=== PATIENT | female | born 1970 | race Caucasian/White ===

== ENCOUNTER 2017-10-16 16:38 | Observation (INO) | payer BC ==
[2017-10-16] MEDS ORDERED: 0.9 % SODIUM CHLORIDE 1,000 ML BAG IV ONE (17:02)
[2017-10-16] MEDS ORDERED: ONDANSETRON HCL IV 4 MG/2 ML VIAL IVP ONE (17:05)
[2017-10-16] MEDS ORDERED: ACETAMINOPHEN 1,000 MG/100 ML BTL IVPB ONE (17:06)
--- NOTE | 2017-10-16 17:08 | Emergency Department Record ---
History of Present Illness - General Source: Patient Mode of Arrival: Ambulatory Limitations: No limitations - History of Present Illness Initial Comments: 47 yo female presents with RUQ that started about 3 am. The pain is located over the RUQ. The pain seemed to come and go. The pain returned after she tried to eat ravioli with arelis sauce for lunch. No fever. She does have nausea. No vomiting. No diarrhea. No fever. No rash. She still does have a gall bladder. No other currently changes in her health. MD Complaint: Abdominal pain Onset/Timin -: Hour(s) Location: RUQ Radiation: Back Migration to: RUQ Severity: Mild Quality: Aching Consistency: Constant Improves With: Nothing Worsens With: Eating Associated Symptoms: Anorexia, Nausea, Vomiting - Related Data Patient : No <KHADRA CURRY - Last Filed: 10/16/17 18:21> - General Source: Patient Mode of Arrival: Ambulatory - History of Present Illness MD Complaint: Abdominal pain -: Hour(s) Location: RUQ <DANIEL GO - Last Filed: 10/17/17 05:15> - General Chief Complaint: Abdominal Pain Stated Complaint: ABD PAIN,NAUSEA Time Seen by Provider: 10/16/17 16:57 - Related Data Home Medications Medication Instructions Recorded Confirmed Last Taken Omeprazole [Prilosec] 20 mg PO DAILY 10/16/17 10/16/17 10/16/17 Allergies Allergy/AdvReac Type Severity Reaction Status Date / Time ibuprofen [From Motrin] Allergy Severe HIVES Verified 10/16/17 17:01 Travel Screening - Travel/Exposure Within Last 30 Days Have you traveled within the last 30 days?: No <KHADRA CURRY - Last Filed: 10/16/17 18:21> Review of Systems Constitutional: Denies: Chills, Fever, Malaise, Weakness Eyes: Denies: Eye discharge, Eye pain, Photophobia ENT: Denies: Congestion, Throat pain Respiratory: Denies: Cough, Dyspnea, Hemoptysis, Stridor, Wheezes Cardiovascular: Denies: Chest pain, Palpitations, Syncope Endocrine: Denies: Fatigue Gastrointestinal: Reports: Abdominal pain, Nausea. Denies: Diarrhea, Vomiting ( almost vomied but did not) Genitourinary: Denies: Dysuria, Urgency Musculoskeletal: Denies: Arthralgia, Back pain, Joint swelling, Myalgia Skin: Denies: Bruising, Change in color, Rash Neurological: Denies: Headache Psychiatric: Denies: Anxiety Hematological/Lymphatic: Denies: Blood Clots, Easy bleeding, Easy bruising, Swollen glands <KHADRA CURRY - Last Filed: 10/16/17 18:21> Reviewed: No additional complaints except as noted below Constitutional: Reports: As per HPI. Denies: Chills, Fever, Malaise, Night sweats, Weakness, Weight change Eyes: Reports: As per HPI. Denies: Eye discharge, Eye pain, Photophobia, Vision change ENT: Reports: As per HPI. Denies: Congestion, Dental pain, Ear pain, Epistaxis , Hearing loss, Throat pain Respiratory: Reports: As per HPI. Denies: Cough, Dyspnea, Hemoptysis, Stridor, Wheezes Cardiovascular: Reports: As per HPI. Denies: Arrhythmia, Chest pain, Dyspnea on exertion, Edema, Murmurs, Orthopnea, Palpitations, Paroxysmal nocturnal dyspnea, Rheumatic Fever, Syncope Endocrine: Reports: As per HPI. Denies: Fatigue, Heat or cold intolerance, Polydipsia, Polyuria Gastrointestinal: Reports: As per HPI. Denies: Abdominal pain, Constipation, Diarrhea, Hematemesis, Hematochezia, Melena, Nausea, Vomiting Genitourinary: Reports: As per HPI. Denies: Abnormal menses, Discharge, Dyspareunia, Dysuria, Frequency, Hematuria, Incontinence, Retention, Urgency Musculoskeletal: Reports: As per HPI. Denies: Arthralgia, Back pain, Gout, Joint swelling, Myalgia, Neck pain Skin: Reports: As per HPI. Denies: Bruising, Change in color, Change in hair/ nails, Lesions, Pruritus, Rash Neurological: Reports: As per HPI. Denies: Abnormal gait, Confusion, Headache, Numbness, Paresthesias, Seizure, Tingling, Tremors, Vertigo, Weakness Psychiatric: Reports: As per HPI. Denies: Anxiety, Auditory hallucinations, Depression, Homicidal thoughts, Suicidal thoughts, Visual hallucinations Hematological/Lymphatic: Reports: As per HPI. Denies: Anemia, Blood Clots, Easy bleeding, Easy bruising, Swollen glands <DANIEL GO - Last Filed: 10/17/17 05:15> Past Medical History - SOCIAL HISTORY Smoking Status: Never smoker Alcohol Use: None Drug Use: None - RESPIRATORY Hx Respiratory Disorders: No - CARDIOVASCULAR Hx Cardio Disorders: No - NEURO Hx Neuro Disorders: No - GI Hx GI Disorders: Yes Hx Abdominal Pain: Yes Hx Reflux: Yes Hx Nausea/Vomiting: Yes - Hx Genitourinary Disorders: No - ENDOCRINE Hx Endocrine Disorders: No - MUSCULOSKELETAL Hx Musculoskeletal Disorders: No - PSYCH Hx Psych Problems: No - HEMATOLOGY/ONCOLOGY Hx Hematology/Oncology Disorders: No <KHADRA CURRY - Last Filed: 10/16/17 18:21> - SOCIAL HISTORY Smoking Status: Never smoker <DANIEL GO - Last Filed: 10/17/17 05:15> Family Medical History Any Significant Family History?: No <KHADRA CURRY - Last Filed: 10/16/17 18:21> Physical Exam - General General Appearance: Alert, Oriented x3, Cooperative, No acute distress Limitations: No limitations - Head Head exam: Normal inspection - Eye Eye exam: Normal appearance, PERRL. negative: Conjunctival injection, Periorbital swelling, Scleral icterus - ENT ENT exam: Normal exam, Mucous membranes moist Ear exam: Normal external inspection Nasal Exam: Normal inspection Mouth exam: Normal external inspection - Neck Neck exam: Normal inspection, Full ROM. negative: Tenderness - Respiratory Respiratory exam: Normal lung sounds bilaterally. negative: Respiratory distress - Cardiovascular Cardiovascular Exam: Regular rate, Normal rhythm, Normal heart sounds - GI/Abdominal GI/Abdominal exam: Soft, Tenderness (Tender RUQ, otherwise soft, non tender abdomen). negative: Rebound, Rigid - Rectal Rectal exam: Deferred - exam: Deferred - Extremities Extremities exam: Normal inspection, Full ROM, Normal capillary refill. negative: Tenderness - Back Back exam: Reports: Normal inspection. Denies: CVA tenderness (R), CVA tenderness (L) - Neurological Neurological exam: Alert, Oriented X3 - Psychiatric Psychiatric exam: Normal affect, Normal mood - Skin Skin exam: Dry, Intact, Normal color, Warm <KHADRA CURRY - Last Filed: 10/16/17 18:21> - General General Appearance: Alert, Oriented x3, Cooperative, No acute distress - Head Head exam: Normal inspection - Eye Eye exam: Normal appearance, PERRL Pupils: Normal accommodation - ENT ENT exam: Normal exam, Mucous membranes moist, Normal external ear exam, Normal orophraynx, TM's normal bilaterally Ear exam: Normal external inspection. negative: External canal tenderness Nasal Exam: Normal inspection. negative: Discharge, Sinus tenderness Mouth exam: Normal external inspection, Tongue normal Teeth exam: Normal inspection. negative: Dental caries Throat exam: Normal inspection. negative: Tonsillar erythema, Tonsillar exudate - Neck Neck exam: Normal inspection, Full ROM. negative: Tenderness - Respiratory Respiratory exam: Normal lung sounds bilaterally. negative: Respiratory distress - Cardiovascular Cardiovascular Exam: Regular rate, Normal rhythm, Normal heart sounds - GI/Abdominal GI/Abdominal exam: Soft, Normal bowel sounds, Tenderness (tender over RUQ abdomen) - Rectal Rectal exam: Deferred - exam: Deferred - Extremities Extremities exam: Normal inspection, Full ROM, Normal capillary refill. negative: Tenderness - Back Back exam: Reports: Normal inspection, Full ROM. Denies: Muscle spasm, Rash noted, Tenderness - Neurological Neurological exam: Alert, Normal gait, Reflexes normal - Psychiatric Psychiatric exam: Normal affect, Normal mood - Skin Skin exam: Dry, Intact, Normal color, Warm <DANIEL GO - Last Filed: 10/17/17 05:15> Course Vital Signs 10/16/17 16:54 Temperature 98.4 F Pulse Rate 63 Respiratory 16 Rate Blood Pressure 119/70 Pulse Ox 100 - Reevaluation(s) Reevaluation #1: The CBC was reviewed The WBC count is 13.9 The UA was reviewed and is negative 10/16/17 17:49 10/16/17 18:21 The CMP was reviewed The AST is 76 The ALT is 47 The Lipase is 32 The alk phos is normal 10/16/17 18:50 The case was signed out to Dr Go for US and recheck at this time <KHADRA CURRY - Last Filed: 10/16/17 18:21> Vital Signs 10/16/17 16:54 Temperature 98.4 F Pulse Rate 63 Respiratory 16 Rate Blood Pressure 119/70 Pulse Ox 100 <DANIEL GO - Last Filed: 10/17/17 05:15> Medical Decision Making - Lab Data Result diagrams: 10/16/17 17:15 10/16/17 17:15 <KHADRA CURRY - Last Filed: 10/16/17 18:21> - Management Options MDM Management: Additional Work-up Planned (e.g. ADM/Transfer/OP Study) (Admit to Dr. Dyson) - Data Complexity MDM Data: Labs Ordered and/or Reviewed, X-Ray Ordered and/or Reviewed - Lab Data Result diagrams: 10/16/17 17:15 10/16/17 17:15 Lab Results 10/16/17 10/16/17 10/16/17 Range/Units 17:15 17:15 17:30 WBC 13.9 H (4.2-12.2) K/uL RBC 4.83 (3.80-5.40) M/uL Hgb 14.4 (11.6-16.0) gm/dl Hct 43.5 (35.0-47.0) % MCV 90.1 (81-97) fl MCH 29.8 (27-33) pg MCHC 33.1 (32-36) g/dl RDW 12.6 (11.5-14.5) % Plt Count 292 (130-400) K/uL MPV 10.1 (7.4-10.4) fl Neutrophils % 82.0 H (47-80) % Band Neutrophils % 3.0 (0-5) % Eosinophils % Not Reportable Basophils % Not Reportable Lymphocytes 9.0 L (16-45) % Monocytes 6.0 (0-9) % Platelet Estimate Normal (NORMAL) RBC Morphology Normal Sodium 140 (136-145) mmol/L Potassium 4.0 (3.4-4.5) mmol/L Chloride 102 (98-107) mmol/L Carbon Dioxide 28.0 (22-29) mmol/L Anion Gap 10.0 (7-16) BUN 12 (6-20) mg/dL Creatinine 0.7 (0.5-0.9) mg/dL Estimated GFR > 60 mL/min Random Glucose 109 (74-109) mg/dL Calcium 9.3 (8.6-10.0) mg/dL Total Bilirubin 0.50 (0.2-1.0) mg/dL AST 76 H (10.0-35.0) U/L ALT 47 H (<33) U/L Alkaline Phosphatase 67 (35-104) U/L Total Protein 7.8 (6.6-8.7) g/dL Albumin 4.5 (4.0-5.0) g/dL Globulin 3.3 (1.4-4.8) gm/dL Albumin/Globulin Ratio 1.4 (1.1-1.8) Lipase 32 (13-60) U/L Urine Color Yellow Urine Appearance Sl cloudy Urine pH 8.0 (5.0-8.0) Ur Specific [place] 1.015 (1.002-1.030) Urine Protein Negative (NEGATIVE) Urine Glucose (UA) Negative (NEGATIVE) Urine Ketones Negative (NEGATIVE) Urine Blood Negative (NEGATIVE) Urine Nitrite Negative (NEGATIVE) Urine Bilirubin Negative (NEGATIVE) Urine Urobilinogen 0.2 (0.20 - 1.00) E.U./dL Ur Leukocyte Esterase Negative (NEGATIVE) Urine HCG, Qual Negative (NEGATIVE) <DANIEL GO - Last Filed: 10/17/17 05:15> Disposition <KHADRA CURRY - Last Filed: 10/16/17 18:21> Disposition: Admit Decision to Admit: Admit from ER Decision to Admit Date: 10/16/17 Decision to Admit Time: 10:00 Accepting Physician: Dr. Dyson Time Discussed w/Accepting Physician: 10:00 <DANIEL GO - Last Filed: 10/17/17 05:15> Clinical Impression: Right upper quadrant pain Cholecystitis, acute with cholelithiasis Qualifiers: Cholelithiasis location: gallbladder Biliary obstruction: with biliary obstruction Qualified Code(s): K80.01 - Calculus of gallbladder with acute cholecystitis with obstruction Disposition: Still a Patient at [facility] Condition: (1) Good Quality - Blood Pressure Screening Does Patient Have Any of the Following: No Blood Pressure Classification: Normal BP Reading Systolic Measurement: 119 Diastolic Measurement: 70 Screening for High Blood Pressure: < Normal BP, F/U Not Required > [G8783] <KHADRA CURRY - Last Filed: 10/16/17 18:21> - Quality Measures Quality Measures: N/A - Blood Pressure Screening Blood Pressure Classification: Normal BP Reading Systolic Measurement: 119 Diastolic Measurement: 70 Screening for High Blood Pressure: < Normal BP, F/U Not Required > [G8783] <DANIEL GO - Last Filed: 10/17/17 05:15>
[2017-10-16 17:38] LABS: HEMATOCRIT 43.5 % (35.0-47.0); HEMOGLOBIN 14.4 gm/dl (11.6-16.0); MEAN CELL VOLUME 90.1 fl (81-97); MEAN CORPUSCULAR HEMOGLOBIN 29.8 pg (27-33); MEAN CORPUSCULAR HGB CONC 33.1 g/dl (32-36); MEAN PLATELET VOLUME 10.1 fl (7.4-10.4); PLATELET COUNT 292 K/uL (130-400); RED BLOOD COUNT 4.83 M/uL (3.80-5.40); RED CELL DISTRIBUTION WIDTH 12.6 % (11.5-14.5); WHITE BLOOD COUNT W/O DIFF 13.9 K/uL (4.2-12.2)
[2017-10-16 17:38] LABS: URINE APPEARANCE SL CLOUDY; URINE BILIRUBIN NEGATIVE (NEGATIVE); URINE BLOOD NEGATIVE (NEGATIVE); URINE COLOR YELLOW; URINE GLUCOSE (UA) NEGATIVE (NEGATIVE); URINE KETONE NEGATIVE (NEGATIVE); URINE LEUKOCYTE ESTERASE NEGATIVE (NEGATIVE); URINE NITRITE NEGATIVE (NEGATIVE); URINE PROTEIN NEGATIVE (NEGATIVE); URINE UROBILINOGEN 0.2 E.U./dL (0.20 - 1.00)
[2017-10-16 17:42] LABS: HCG,QUALITATIVE URINE NEGATIVE (NEGATIVE)
[2017-10-16 17:48] LABS: PLATELET ESTIMATE NORMAL (NORMAL)
[2017-10-16 17:50] LABS: BLOOD UREA NITROGEN 12 mg/dL (6-20); CREATININE 0.7 mg/dL (0.5-0.9); EST GLOMERULAR FILTRATION RATE > 60 mL/min
[2017-10-16 17:51] LABS: TOTAL PROTEIN 7.8 g/dL (6.6-8.7)
[2017-10-16 17:53] LABS: GLUCOSE,RANDOM 109 mg/dL (74-109)
[2017-10-16 17:55] LABS: ALB/GLOB RATIO 1.4 (1.1-1.8); ALBUMIN 4.5 g/dL (4.0-5.0); ALKALINE PHOSPHATASE 67 U/L (35-104); ALT/SGPT 47 U/L (<33); AST/SGOT 76 U/L (10.0-35.0)
[2017-10-16 17:56] LABS: LIPASE 32 U/L (13-60)
--- NOTE | 2017-10-16 19:46 | Emergency Department Record ---
History of Present Illness - General Chief Complaint: Abdominal Pain Stated Complaint: ABD PAIN,NAUSEA Time Seen by Provider: 10/16/17 16:57 Source: Patient Mode of Arrival: Ambulatory Limitations: No limitations - History of Present Illness MD Complaint: Abdominal pain Onset/Timin -: Hour(s) Location: RUQ Radiation: Back Migration to: RUQ Severity: Mild Quality: Aching Consistency: Constant Improves With: Nothing Worsens With: Eating Associated Symptoms: Anorexia, Nausea, Vomiting - Related Data Patient : No Home Medications Medication Instructions Recorded Confirmed Last Taken Omeprazole [Prilosec] 20 mg PO DAILY 10/16/17 10/16/17 10/16/17 Allergies Allergy/AdvReac Type Severity Reaction Status Date / Time ibuprofen [From Motrin] Allergy Severe HIVES Verified 10/16/17 17:01 Travel Screening - Travel/Exposure Within Last 30 Days Have you traveled within the last 30 days?: No Review of Systems Constitutional: Denies: Chills, Fever, Malaise, Weakness Eyes: Denies: Eye discharge, Eye pain, Photophobia ENT: Denies: Congestion, Throat pain Respiratory: Denies: Cough, Dyspnea, Hemoptysis, Stridor, Wheezes Cardiovascular: Denies: Chest pain, Palpitations, Syncope Endocrine: Denies: Fatigue Gastrointestinal: Reports: Abdominal pain, Nausea. Denies: Diarrhea, Vomiting ( almost vomied but did not) Genitourinary: Denies: Dysuria, Urgency Musculoskeletal: Denies: Arthralgia, Back pain, Joint swelling, Myalgia Skin: Denies: Bruising, Change in color, Rash Neurological: Denies: Headache Psychiatric: Denies: Anxiety Hematological/Lymphatic: Denies: Blood Clots, Easy bleeding, Easy bruising, Swollen glands Past Medical History - SOCIAL HISTORY Smoking Status: Never smoker Alcohol Use: None Drug Use: None - RESPIRATORY Hx Respiratory Disorders: No - CARDIOVASCULAR Hx Cardio Disorders: No - NEURO Hx Neuro Disorders: No - GI Hx GI Disorders: Yes Hx Abdominal Pain: Yes Hx Reflux: Yes Hx Nausea/Vomiting: Yes - Hx Genitourinary Disorders: No - ENDOCRINE Hx Endocrine Disorders: No - MUSCULOSKELETAL Hx Musculoskeletal Disorders: No - PSYCH Hx Psych Problems: No - HEMATOLOGY/ONCOLOGY Hx Hematology/Oncology Disorders: No Family Medical History Any Significant Family History?: No Physical Exam - General Limitations: No limitations Course Vital Signs 10/16/17 16:54 Temperature 98.4 F Pulse Rate 63 Respiratory 16 Rate Blood Pressure 119/70 Pulse Ox 100 - Reevaluation(s) Reevaluation #1: Patient states she hurts more in her RUQ since the US procedure, but is not requesting more pain medicine. US shows positive Griffith's; cholelithiasis without evidence of cholecystitis. Benign hepatic cysts. Per radiologist. She currently if about a 4-5/10 pain. She state over the past 13 months she has had episodes liek this about once a month only such less severity and they usually resolved on their own after over the counter meds. 10/16/17 19:39 10/16/17 19:44 Reevaluation #2: spoke with Dr. Dyson who requests admission, pain meds and IV antibiotics and he will see her tomorrow on the floor. 10/16/17 19:49 Medical Decision Making - Management Options MDM Management: Additional Work-up Planned (e.g. ADM/Transfer/OP Study) - Data Complexity MDM Data: Labs Ordered and/or Reviewed (WBC 13.9; 82 Neut; 3 Bands; AST 76; ALT 47. UA neg.), X-Ray Ordered and/or Reviewed (Us Abdomen + Griffith's wit cholelithiasis withou evidence of cholecystitis. Benign hepatic cysts. Per radiologist.) - Lab Data Result diagrams: 10/16/17 17:15 10/16/17 17:15 Lab Results 10/16/17 10/16/17 10/16/17 Range/Units 17:15 17:15 17:30 WBC 13.9 H (4.2-12.2) K/uL RBC 4.83 (3.80-5.40) M/uL Hgb 14.4 (11.6-16.0) gm/dl Hct 43.5 (35.0-47.0) % MCV 90.1 (81-97) fl MCH 29.8 (27-33) pg MCHC 33.1 (32-36) g/dl RDW 12.6 (11.5-14.5) % Plt Count 292 (130-400) K/uL MPV 10.1 (7.4-10.4) fl Neutrophils % 82.0 H (47-80) % Band Neutrophils % 3.0 (0-5) % Eosinophils % Not Reportable Basophils % Not Reportable Lymphocytes 9.0 L (16-45) % Monocytes 6.0 (0-9) % Platelet Estimate Normal (NORMAL) RBC Morphology Normal Sodium 140 (136-145) mmol/L Potassium 4.0 (3.4-4.5) mmol/L Chloride 102 (98-107) mmol/L Carbon Dioxide 28.0 (22-29) mmol/L Anion Gap 10.0 (7-16) BUN 12 (6-20) mg/dL Creatinine 0.7 (0.5-0.9) mg/dL Estimated GFR > 60 mL/min Random Glucose 109 (74-109) mg/dL Calcium 9.3 (8.6-10.0) mg/dL Total Bilirubin 0.50 (0.2-1.0) mg/dL AST 76 H (10.0-35.0) U/L ALT 47 H (<33) U/L Alkaline Phosphatase 67 (35-104) U/L Total Protein 7.8 (6.6-8.7) g/dL Albumin 4.5 (4.0-5.0) g/dL Globulin 3.3 (1.4-4.8) gm/dL Albumin/Globulin Ratio 1.4 (1.1-1.8) Lipase 32 (13-60) U/L Urine Color Yellow Urine Appearance Sl cloudy Urine pH 8.0 (5.0-8.0) Ur Specific [place] 1.015 (1.002-1.030) Urine Protein Negative (NEGATIVE) Urine Glucose (UA) Negative (NEGATIVE) Urine Ketones Negative (NEGATIVE) Urine Blood Negative (NEGATIVE) Urine Nitrite Negative (NEGATIVE) Urine Bilirubin Negative (NEGATIVE) Urine Urobilinogen 0.2 (0.20 - 1.00) E.U./dL Ur Leukocyte Esterase Negative (NEGATIVE) Urine HCG, Qual Negative (NEGATIVE) Disposition Disposition: Admit Clinical Impression: Right upper quadrant pain Cholecystitis, acute with cholelithiasis Qualifiers: Cholelithiasis location: gallbladder Biliary obstruction: with biliary obstruction Qualified Code(s): K80.01 - Calculus of gallbladder with acute cholecystitis with obstruction Disposition: Still a Patient at [facility] Decision to Admit: Admit from ER Decision to Admit Date: 10/16/17 Decision to Admit Time: 19:54 Accepting Physician: Dr. Dyson Time Discussed w/Accepting Physician: 19:54 Condition: (1) Good Forms: Patient Portal Access Quality - Quality Measures Quality Measures: N/A - Blood Pressure Screening Does Patient Have Any of the Following: No Blood Pressure Classification: Normal BP Reading Systolic Measurement: 119 Diastolic Measurement: 70 Screening for High Blood Pressure: < Normal BP, F/U Not Required > [G8783]
[2017-10-16] MEDS ORDERED: ERTAPENEM SODIUM 1 G in 0.9 % SODIUM CHLORIDE 100ML 100 ML IVPB ONE (19:50)
[2017-10-16] MEDS ORDERED: LIDOCAINE 2% MDV (20MG/ML) 20ML VIAL IV ONE (20:31)
[2017-10-16] MEDS ORDERED: ROCURONIUM BROMIDE 50MG/5ML VIAL IV ONE (20:31)
[2017-10-16] MEDS ORDERED: SUFENTANIL CITRATE 50 MCG/ML AMPUL IV ONE (20:31)
[2017-10-16] MEDS ORDERED: SUGAMMADEX SODIUM 200 MG/2 ML VIAL IV ONE (20:31)
[2017-10-16] MEDS ORDERED: MORPHINE SULFATE 5 MG/ML PFS IVP PRN (21:00)
[2017-10-16] MEDS ORDERED: 0.9 % SODIUM CHLORIDE 1000ML 1,000 ML IV PRN (21:00)
[2017-10-16] MEDS ORDERED: ONDANSETRON HCL IV 4 MG/2 ML VIAL IVP PRN (21:00)
[2017-10-16] MEDS ORDERED: FLU VAC QS 2017-18 (INPT, 6MO+) 60MCG/0.5ML IM ONE (21:14)
[2017-10-17 07:13] LABS: BASO % 0.5 % (0-6); EOS % 1.8 % (0-6); GRAN % 67.6 % (47-80); HEMATOCRIT 38.3 % (35.0-47.0); LYMPH % 24.1 % (16-45); MEAN CELL VOLUME 91.2 fl (81-97); MEAN CORPUSCULAR HEMOGLOBIN 28.6 pg (27-33); MEAN CORPUSCULAR HGB CONC 31.3 g/dl (32-36); MEAN PLATELET VOLUME 10.3 fl (7.4-10.4); PLATELET COUNT 221 K/uL (130-400); RED CELL DISTRIBUTION WIDTH 12.4 % (11.5-14.5)
[2017-10-17 07:27] LABS: ALB/GLOB RATIO 1.3 (1.1-1.8); ALBUMIN 3.5 g/dL (4.0-5.0); ALKALINE PHOSPHATASE 62 U/L (35-104); ALT/SGPT 324 U/L (<33); AST/SGOT 248 U/L (10.0-35.0); BLOOD UREA NITROGEN 8 mg/dL (6-20); CREATININE 0.6 mg/dL (0.5-0.9); EST GLOMERULAR FILTRATION RATE > 60 mL/min; GLUCOSE,RANDOM 83 mg/dL (74-109); TOTAL PROTEIN 6.1 g/dL (6.6-8.7)
--- NOTE | 2017-10-17 07:30 | ULTRASOUND REPORT ---
EXAM: ABDOMEN ULTRASOUND HISTORY: ACUTE RIGHT UPPER QUADRANT ABDOMINAL PAIN. TECHNIQUE: Real-time krishna scale sonographic imaging of the abdomen was performed. Comparison: None. FINDINGS: The liver and spleen are not enlarged and appear homogeneous. No biliary dilatation. The common duct measures 4 mm in diameter, within normal limits. Anechoic cysts in the left lobe of the liver measuring up to 2.5 x 1.9 cm respectively. Anechoic cyst in the right lobe of the liver measures 2.6 cm. Mobile echogenic gallstones in the gallbladder. No gallbladder wall thickening or pericholecystic fluid. Sonographic Griffith's sign is negative. The kidneys are normal without mass, calculi, or hydronephrosis. The right kidney measures 10.1 x 4.9 x 5.1 cm and the left kidney measures 10.6 x 6.0 x 5.0 cm. The pancreas, abdominal aorta and IVC are unremarkable. IMPRESSION: 1. CHOLELITHIASIS WITHOUT SONOGRAPHIC EVIDENCE OF ACUTE CHOLECYSTITIS. 2. BENIGN HEPATIC CYSTS. JOB NUMBER: [id number] [facility]
[2017-10-17] MEDS ORDERED: ACETAMINOPHEN 1,000 MG/100 ML BTL IV ONE (13:00)
[2017-10-17] MEDS ORDERED: METOCLOPRAMIDE 10 MG TABLET PO ONE (13:00)
[2017-10-17] MEDS ORDERED: MECLIZINE 25 MG TABLET PO ONE (13:00)
[2017-10-17] MEDS ORDERED: FAMOTIDINE 20MG TABLET PO ONE (13:00)
[2017-10-17] MEDS ORDERED: HYDROCODONE/APAP 5/325MG TABLET PO PRN (16:43)
--- NOTE | 2017-10-21 11:30 | Operative Note ---
DATE OF SURGERY: 10/16/2017 Surgeon: Jose Dyson DO PREOPERATIVE DIAGNOSIS: Acute cholecystitis. POSTOPERATIVE DIAGNOSIS: Acute cholecystitis. OPERATION: Laparoscopic cholecystectomy. Indication: The patient is a 47-year-old female who had about a 2-year history of ongoing right subcostal postprandial pain. She was seen in the ER in [place] multiple times for what they felt was biliary colic. She elected not to pursue anything as far as her gallbladder. She was seen back in [facility] ER last night where she had leukocytosis. Ultrasound did show findings consistent with cholelithiasis and she had a fairly significant tenderness on exam. We did discuss cholecystectomy versus medical management. She desired surgical intervention. Risks include but are not limited to bleeding, infection, ductal injury, possible conversion to open, postoperative bile leak. She understood this fully. PROCEDURE: Thereafter, consent was signed and questions answered. She was taken to the operating room and placed in a supine position. General anesthesia was administered per the department of anesthesia. The patient's abdomen was prepped and draped in the usual sterile fashion. At this time, adequate timeout was performed. She did receive preoperative antibiotics as well as DVT prophylaxis. At this time, the infraumbilical region was anesthetized with a total of 2 mL of 0.25% Sensorcaine with epinephrine. A 2 cm infraumbilical incision was made. This was carried down to the anterior rectus fascia. This was incised. Brenda clamps were placed on the fascial edges and brought up into the wound. Stay sutures of 0 Vicryl were placed. Posterior rectus sheath was identified and incised. The peritoneal cavity was entered bluntly. At this time, a 10 mm blunt Meir port was placed. Adequate pneumoperitoneum was established. Under direct visualization, additional 5 mm epigastric and two 5 mm right subcostal ports were placed. The patient was then rotated into steep reverse Trendelenburg with rotation to left. General exam was done. The patient had very distended stomach; therefore, orogastric tube was placed per the department of anesthesia. The gallbladder was thickened and edematous. This was retracted in a cephalad and lateral direction opening up the angle of [place]ot. The distal half of the gallbladder was released from the cystic plate and the triangle of Calot was thoroughly dissected out, skeletonizing our cystic duct and cystic artery. We had an excellent critical view of safety. There was no aberrant anatomy, no posterior ductal structures. I could clearly see the common bile duct medial. At this time, the cystic artery was taken down the Bernardo hormonic. The cystic duct was triply clipped and cut in a standard fashion. Gallbladder was then taken off the liver bed with Bernardo harmonic. This was extracted through the infraumbilical port. Right upper quadrant was rechecked and found to be hemostatic. No bleeding. No bile leak. No bowel injury noted. The patient was leveled out. The pneumoperitoneum was released. All ports were removed. The fascia was closed with 0 Vicryl in a [id number] fashion. The skin of all 4 ports was closed with 4-0 Vicryl. She was taken to the recovery room in satisfactory condition. FINDINGS AT THE TIME OF SURGERY: Acute on chronic cholecystitis. MTDD
== END 2017-10-17 17:45 | disposition home or self-care (01) ==
LOC: ER 16:38 → MEDSURG 20:30
PROVIDERS: ADMIT Surgery; ATTEND Surgery
DX: K81.0 Acute cholecystitis (principal); K81.1 Chronic cholecystitis; R11.2 Nausea with vomiting, unspecified
CPT/HCPCS: 47562; 00790; 99285 ×2; 96374; 96375; 83690; 85025; 80053 ×2; 81003; 81025; 85027; 76700; G0378 ×2; J1335; J2405; J3490; J7030